=== PATIENT | male | born 1960 | race Caucasian/White ===

== ENCOUNTER → 2023-11-09 19:36 | Outpatient (REF) | payer BC, SELFPAY | LOC: MRI 3T 19:36 | PROVIDERS: ATTENDING PHYSICIAN Specialist; FAMILY PHYSICIAN Physician Assistant Medical | DX: R97.20 Elevated prostate specific antigen [PSA] (principal) | CPT/HCPCS: 72197; A9575 ==

== ENCOUNTER → 2024-05-17 06:51 | Outpatient (REF) | payer BC, SELFPAY | LOC: MRI 3T 06:51 | PROVIDERS: ATTENDING PHYSICIAN Nurse Practitioner Primary Care; FAMILY PHYSICIAN Internal Medicine | DX: M54.50 Low back pain, unspecified (principal); M51.9 Unspecified thoracic, thoracolumbar and lumbosacral intervertebral disc disorder; C61 Malignant neoplasm of prostate | CPT/HCPCS: 72148 ==